=== PATIENT | male | born 1965 | race Caucasian/White ===

== ENCOUNTER 2016-11-27 13:57 | Emergency (ER) | payer BC ==
--- NOTE | 2016-11-27 14:14 | ED Physician Documentation ---
History of Present Illness - Stated complaint Stated Complaint: KIRAN/ELEVATED BP - Chief complaint Chief Complaint: General - History obtained from History obtained from: Patient - Additonal information Additional information: The patient is a 51-year-old male who presents with high blood pressure and pounding headache. He has been measuring his blood pressure in the 190s over the mid 90s for the past week. His headache has been intermittent, and occipital in location. He denies visual disturbance, chest pain or shortness of breath, nausea or vomiting, numbness or weakness. He reports similar symptoms occasionally in the past, but never lasting for this long. He has never been treated for hypertension. 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 Review of Systems Constitutional: denies: Fever, Fatigue Eyes: denies: Decreased vision Ears: denies: Tinnitus/ringing Nose: denies: Congestion Throat: denies: Sore throat Cardiac: denies: Chest pain / pressure, Palpitations Respiratory: denies: Dyspnea, Cough GI: denies: Abdominal Pain, Nausea, Vomiting : denies: Dysuria Skin: denies: Rash Musculoskeletal: denies: Neck pain, Back pain Neurologic: reports: Headache (Intermittent, occipital.). 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) - Past Surgical History Past Surgical History: Yes HEENT: Other (Squamous cell tumor resection of tongue, and right anterior lymph node dissection (August 2016).) - Present Medications Home Medications: Ambulatory Orders Medication Instructions Recorded Confirmed Irbesartan 75 mg PO DAILY #30 tablet 11/27/16 - Allergies Allergies/Adverse Reactions: Allergies Allergy/AdvReac Type Severity Reaction Status Date / Time No Known Drug Allergies Allergy Verified 11/27/16 14:07 - Social History Does the pt smoke?: No PD ED PE NORMAL - Vitals Vital signs reviewed: Yes (Hypertensive) - General General: Alert and oriented X 3, Well developed/nourished - HEENT HEENT: Atraumatic, PERRL, EOMI, Ears normal, Pharynx benign, Other (Fundi with sharp disc margins, without papilledema.) - Neck Neck: Supple, no meningeal sign, No adenopathy, No JVD - Cardiac Cardiac: RRR, No murmur - Respiratory Respiratory: No respiratory distress, Clear bilaterally - Abdomen Abdomen: Soft, Non tender - Back Back: No CVA TTP - Derm Derm: No rash - Extremities Extremities: No edema, No calf tenderness / cord - Neuro Neuro: Alert and oriented X 3, No motor deficit, No sensory deficit, Normal speech Results - Vitals Vitals: Oxygen O2 Source Room air - EKG (time done) 14:14 Rate: Rate (enter#) (66) Rhythm: NSR [place]: Normal Intervals: Normal MO QRS: Normal Ischemia: Normal ST segments Computer interpretation: Agree with computer - Labs Labs: Laboratory Tests 11/27/16 11/27/16 11/27/16 14:40 14:40 14:40 WBC 5.3 RBC 4.78 Hgb 14.2 Hct 40.0 L MCV 83.8 MCH 29.7 MCHC 35.4 RDW 13.1 Plt Count 150 MPV 8.1 Neut # 3.5 Lymph # 1.3 L [place] # 0.4 Eos # 0.1 Baso # 0.0 Absolute Nucleated RBC 0.00 Nucleated RBCs 0.0 Sodium 139 Potassium 3.7 Chloride 108 Carbon Dioxide 24 Anion Gap 7.0 BUN 19 Creatinine 0.7 Estimated GFR (MDRD) 119 Glucose 102 H Calcium 8.5 Total Bilirubin 0.5 AST 27 ALT 31 Alkaline Phosphatase 55 Total Protein 6.8 Albumin 4.1 Globulin 2.7 Albumin/Globulin Ratio 1.5 Lipase 30 Urine Color YELLOW Urine Clarity CLEAR Urine pH 6.5 Ur Specific [place] 1.020 Urine Protein NEGATIVE Urine Glucose (UA) NEGATIVE Urine Ketones NEGATIVE Urine Occult Blood TRACE-LYSE Urine Nitrite NEGATIVE Urine Bilirubin NEGATIVE Urine Urobilinogen 0.2 (NORMAL) Ur Leukocyte Esterase NEGATIVE Ur Microscopic Review NOT INDICATED Urine Culture Comments NOT INDICATED PD MEDICAL DECISION MAKING - ED course Complexity details: reviewed results, re-evaluated patient, considered differential, d/w patient, d/w family, d/w PMD ED course: The patient's presentation is significant for hypertension, of unknown etiology. His blood pressure on initial arrival was 197/98. He is otherwise asymptomatic except for intermittent occipital headache. He denies visual disturbance, chest pain, or nausea. His electrocardiogram reveals no ischemic abnormalities, and his CBC, chemistry panel, and urinalysis are normal. Treatment in the emergency department included administration of metoprolol 50 mg orally. I discussed his presentation with his primary physician, Dr. Mccray, who advises prescribing Irbesartan 75 mg daily. At the time of discharge the patient's blood pressure had improved to 170/87. He is being discharged with prescription for Irbesartan. I discussed with him the importance of follow-up with his primary physician, as well as potentially worrisome signs or symptoms that should prompt reevaluation in the emergency department. Departure - Departure Disposition: 01 Home, Self Care Clinical Impression: High blood pressure Qualifiers: Hypertension type: unspecified secondary hypertension Qualified Code(s): I15.9 - Secondary hypertension, unspecified Condition: Stable Instructions: ED Hypertension New Begin Tx Follow-Up: Faheem Mccray MD [Primary Care Provider] - Prescriptions: Irbesartan 75 mg PO DAILY #30 tablet Comments: Take the blood pressure medication daily as prescribed. You can use Tylenol or ibuprofen as needed for headache. Follow up with your primary physician as scheduled. Return to the emergency department if you develop increasing headache, visual disturbance, chest pain or shortness of breath, or otherwise worsening symptoms. Discharge Date/Time: 11/27/16 15:25
[2016-11-27] MEDS ORDERED: METOPROLOL TARTRATE 50 MG TABLET PO STA (14:18)
[2016-11-27] MEDS ORDERED: METOPROLOL TARTRATE 50 MG TABLET ONE (14:37)
[2016-11-27 14:48] LABS: BASOPHILS % (AUTO) 0.4 %; EOSINOPHILS # (AUTO) 0.1 10^3/uL (0.0-0.7); EOSINOPHILS % (AUTO) 1.9 %; HGB - HEMOGLOBIN 14.2 g/dL (14.0-18.0); LYMPHOCYTES # (AUTO) 1.3 10^3/uL (1.5-3.5); LYMPHOCYTES % (AUTO) 24.1 %; MEAN CORPUSCULAR HEMOGLOBIN 29.7 pg (27.0-31.0); MEAN CORPUSCULAR HGB CONC 35.4 g/dL (32.0-36.0); MEAN CORPUSCULAR VOLUME 83.8 fL (80.0-94.0); MEAN PLATELET VOLUME 8.1 fL (7.4-11.4); MONOCYTES # (AUTO) 0.4 10^3/uL (0.0-1.0); MONOCYTES % (AUTO) 7.8 %; NEUTROPHILS # (AUTO) 3.5 10^3/uL (1.5-6.6); NEUTROPHILS % (AUTO) 65.8 %; RED BLOOD COUNT 4.78 10^6/uL (4.70-6.10); RED CELL DISTRIBUTION WIDTH 13.1 % (12.0-15.0); UNCORRECTED WHITE BLOOD COUNT 5.3 x10^3/uL; WHITE BLOOD COUNT 5.3 x10^3/uL (4.8-10.8)
[2016-11-27 14:53] LABS: BILIRUBIN,URINE NEGATIVE (NEGATIVE); PH,URINE 6.5 PH (5.0-7.5)
[2016-11-27 14:55] LABS: UA CHARGE (STRIP ONLY) YES; UR CULTURE IF IND NOT INDICATED
[2016-11-27 15:05] LABS: ALBUMIN/GLOBULIN RATIO 1.5 (1.0-2.2); BILIRUBIN,TOTAL 0.5 mg/dL (0.2-1.0); CALCIUM 8.5 mg/dL (8.5-10.3); CREATININE 0.7 mg/dL (0.6-1.2); POTASSIUM 3.7 mmol/L (3.5-5.0); TOTAL PROTEIN 6.8 g/dL (6.7-8.2)
[2016-11-27 15:17] VITALS: BP 170/87
== END 2016-11-27 15:25 | disposition home or self-care (01) ==
LOC: ED 13:57
DX: I10 Essential (primary) hypertension (principal); R51 Headache; Z85.810 Personal history of malignant neoplasm of tongue
CPT/HCPCS: 36415; 80053; 81003; 83690; 85025; 93005; 93010; 99283; 99284; A9270; 81001; 87086

== ENCOUNTER 2018-01-10 13:16 | Outpatient (CLI) | payer BC | END 2018-01-10 23:59 | disposition short-term general hospital (02) | LOC: EMS 13:16 | PROVIDERS: ATTEND Surgery | DX: R09.89 Other specified symptoms and signs involving the circulatory and respiratory systems (principal) | CPT/HCPCS: A0170; A0425; A0429 ==

== ENCOUNTER 2018-11-25 10:33 | Outpatient (CLI) | payer BC ==
[2018-11-25] MEDS ORDERED: IOVERSOL 320 100 ML VIAL IVP ONE ×2 (11:06→14:45)
[2018-11-25] MEDS ORDERED: IOVERSOL 320 50 ML VIAL ONE (11:06)
[2018-11-25] MEDS ORDERED: IOVERSOL 320 50 ML VIAL PO ONE (14:45)
--- NOTE | 2018-11-25 15:29 | CT Report ---
Reason: METESTETIC HEAD NECK CANCER Procedure Date: 11/25/2018 Accession Number: [id number] / [id number] Procedure: CT - Abdomen/Pelvis W CPT Code: FULL RESULT: EXAM: CT ABDOMEN AND PELVIS EXAM DATE: 11/25/2018 12:32 PM. CLINICAL HISTORY: Metastatic head and neck cancer for follow-up COMPARISONS: [facility] 08/17/2018 TECHNIQUE: Routine helical CT imaging was performed through the abdomen and pelvis. IV contrast: OPTI 320 100mL. Enteric contrast: Yes. Reconstructions: Coronal and sagittal. In accordance with CT protocol optimization, one or more of the following dose reduction techniques were utilized for this exam: automated exposure control, adjustment of mA and/or KV based on patient size, or use of iterative reconstructive technique. FINDINGS: Lung Bases: Unremarkable. Liver: New 7 mm posterior right lobe low attenuation lesion 10/16. Otherwise stable unremarkable liver. Gallbladder/Bile Ducts: Unremarkable. Spleen: Normal. Pancreas: Normal. Adrenal Glands: Enlarging right adrenal mass currently 3.4 x 2.4 cm, previously 1.8 x 1.2 cm. Negative left adrenal gland Kidneys: Stable bilateral cysts, the largest on the left 5.3 x 5.4 cm . Peritoneal Cavity/Bowel: No free fluid, free air or adenopathy. No masses or acute inflammatory process. The appendix is well seen and normal. Pelvic Organs: Normal. The bladder and pelvic organs are within normal limits. Vasculature: No aneurysms or other significant abnormality. Bones: No significant abnormality. Other: None. IMPRESSION: 1. Enlarging right adrenal mass currently 3.4 x 2.4 cm, previously 1.8 x 1.2 cm, consistent with metastatic disease. 2. New 7 mm low-attenuation lesion right lobe of the liver worrisome for metastatic disease. 3. Stable renal cysts. 4. No other significant findings or interval change. RADIA
--- NOTE | 2018-11-25 16:05 | CT Report ---
Reason: METESTETIC HEAD NECK CANCER Procedure Date: 11/25/2018 Accession Number: [id number] / [id number] Procedure: CT - CHEST W CPT Code: FULL RESULT: EXAM: CT CHEST EXAM DATE: 11/25/2018 12:32 PM. CLINICAL HISTORY: Metastatic HEAD AND NECK CANCER. For follow-up COMPARISONS: 08/17/[address] TECHNIQUE: Routine helical CT imaging was performed through the chest. IV contrast: 100 cc Optiray 320. Reconstructions: Coronal and sagittal. In accordance with CT protocol optimization, one or more of the following dose reduction techniques were utilized for this exam: automated exposure control, adjustment of mA and/or KV based on patient size, or use of iterative reconstructive technique. FINDINGS: Lungs/Pleura: The 2 previously seen irregular cystic nodules at the right lung apex have coalesced into one large mass with relatively stable cystic components but enlarging solid component. There is now ill-defined destruction with a pathologic fracture of the right first rib 09/01. A broad cord of tissue extends from this apical mass to a right hilar mass/adenopathy currently measuring 3 x 3.5 cm 09/15 and 26 previously approximately 3.3 x 2.7 cm. The left lower lobe mass is similar in size but now exhibits central cystic components not previously present. There is no pleural fluid or pneumothorax. Mediastinum: Right hilar lymph node as above. In addition enlarging anterior mediastinal lymph node 09/12 currently 5 mm. Bones: Multiple Schmorl's nodes. No thoracic spine bone destruction. Other: None. IMPRESSION: 1. Enlarging right apical cystic and solid soft tissue mass with associated new bone destruction and pathologic fracture of the right first rib. 2. Enlarging right hilar mass/adenopathy with a thick cord of tissue extending from the hilum to the apical mass. 3. Stable size left lower lobe mass now with partial cystic replacement of the solid component. 4. Enlarging subcentimeter anterior mediastinal lymph node. 5. Otherwise stable. See neck and abdomen/pelvic CT reports. RADIA
--- NOTE | 2018-11-25 16:49 | CT Report ---
Reason: METESTETIC HEAD NECK CANCER Procedure Date: 11/25/2018 Accession Number: [id number] / [id number] Procedure: CT - SOFT TISSUE NECK W CPT Code: FULL RESULT: EXAM: CT SOFT TISSUE NECK WITH CONTRAST. EXAM DATE: 11/25/2018 12:32 PM. HISTORY: Metastatic head and neck cancer for follow-up. COMPARISONS: 08/17/2018. TECHNIQUE: Routine soft tissue neck CT protocol. Reconstructions: Coronal and sagittal. IV contrast: OPTI 320 100mL. In accordance with CT protocol optimization, one or more of the following dose reduction techniques were utilized for this exam: automated exposure control, adjustment of mA and/or KV based on patient size, or use of iterative reconstructive technique. FINDINGS: Included Intracranial Contents: Unremarkable. Orbits: Symmetric and unremarkable. Sinuses: Mild membrane thickening right maxillary sinus. Clear mastoid air cells and middle ear cavities, left maxillary sinus, and bilateral ethmoid sinuses.. Oral cavity: Postsurgical changes consistent with base of tongue cancer. Question developing left floor of mouth collection with faint peripheral enhancement measuring 2 x 1.9 cm and versus evolving postsurgical change. Larynx: Larynx and supraglottic airway are patent without mass lesion. Vocal cords are symmetric. The imaged trachea is unremarkable. Parotid and Submandibular Glands: The right submandibular gland is either atrophic or has been resected. The left submandibular gland and left parotid gland appear normal the right parotid gland is slightly small in size. Lymph Nodes: No enlarged lymph nodes are identified. Soft tissues: Status post right lymph node dissection with multiple surgical clips. The right sternocleidomastoid muscle remains, but adjacent fat planes are distorted and there is diffuse soft tissue thickening consistent with scarring and radiation. The scalene muscles appear asymmetric and there is loss of the normal fat planes on the right for example . Asymmetric increased soft tissue anterior to the right first rib is similar to previous . Increasing soft tissue density at the right apex and between the first and second ribs. Vascular Structures: The right internal jugular vein has either been resected or is occluded. Right internal carotid artery remains. Thyroid Gland: Unremarkable Lung apex: Enlarging cystic and solid mass right apex. Bones: Right first rib destruction with pathologic fracture. Other: Right Port-A-Cath in place4 IMPRESSION: 1. Postsurgical and post radiation changes right neck similar to 08/17/2018 including asymmetry of the scalene muscles. Presumed resection of the right internal jugular vein and submandibular gland versus thrombosis/atrophy. 2. Question developing left floor of mouth collection versus evolving postsurgical change. 3. Enlarging cystic and solid right apical mass now with right first rib destruction and a pathologic fracture. 4. Right Port-A-Cath. 5. No definite pathologic adenopathy. RADIA
== END 2018-11-25 10:34 | disposition home or self-care (01) ==
LOC: DI 10:33
PROVIDERS: ATTEND Internal Medicine
DX: C02.1 Malignant neoplasm of border of tongue (principal); C78.01 Secondary malignant neoplasm of right lung; M84.48XA Pathological fracture, other site, initial encounter for fracture; Z95.828 Presence of other vascular implants and grafts; E27.9 Disorder of adrenal gland, unspecified; K76.9 Liver disease, unspecified; Q61.02 Congenital multiple renal cysts
CPT/HCPCS: 70491; 71260; 74177; Q9967

== ENCOUNTER 2019-02-16 01:26 | Outpatient (CLI) | payer BC | END 2019-02-16 01:27 | disposition critical access hospital (66) | LOC: EMS 01:26 | PROVIDERS: ATTEND Surgery | DX: K92.0 Hematemesis (principal) | CPT/HCPCS: A0425; A0427 ==

== ENCOUNTER 2019-02-16 01:57 | Emergency (ER) | payer BC ==
[2019-02-16 02:04] VITALS: BP 149/81
[2019-02-16] MEDS ORDERED: TRANEXAMIC ACID 1,000 MG in SODIUM CHLORIDE 0.9% 100ML 100 ML IV STA (02:13)
[2019-02-16] MEDS ORDERED: ONDANSETRON ODT 4 MG Prepack 2 TL PRN (02:13)
--- NOTE | 2019-02-16 02:22 | ED Physician Documentation ---
History of Present Illness - Stated complaint Stated Complaint: VOMITING BLOOD, CA - Chief complaint Chief Complaint: General - History obtained from History obtained from: Patient, Family, EMS - History of Present Illness Timing: Today Pain level max: 8 Pain level now: 2 Improved by: nothing Worsened by: nothing - Additonal information Additional information: 53-year-old male with a history of squamous cell carcinoma of the throat presents to the emergency department with increasing pain and vomiting. States he started bleeding and then had the vomiting. No vomiting blood. Received fentanyl and Zofran with EMS. Symptoms are now controlled. He is on hospice care. Does not feel that he has bleeding currently. 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) - Past Surgical History Past Surgical History: Yes General: Other HEENT: Other (Squamous cell tumor resection of tongue, and right anterior lymph node dissection (August 2016).) - Present Medications Home Medications: Ambulatory Orders Medication Instructions Recorded Confirmed Oxycodone HCl 10 mg ORAL Q4H PRN 11/10/18 02/01/19 Apixaban [Eliquis] 5 mg PO BID 12/01/18 02/01/19 Cholecalciferol (Vitamin D3) 3,000 unit PO DAILY 12/01/18 02/01/19 [Vitamin D3] Cyanocobalamin (Vitamin B-12) 1,000 mcg PO DAILY 12/01/18 02/01/19 [Vitamin B-12] Diphenoxylate HCl/Atropine 1 tab PO Q6H PRN 12/01/18 02/01/19 [Diphenoxylate-Atrop 2.5-0.025] Levothyroxine [Synthroid] 75 mg PO DAILY 12/01/18 02/01/19 Loratadine [Claritin] 10 mg PO DAILY 12/01/18 02/01/19 Magnesium Oxide [Mag-Oxide] 400 mg PO BID 12/01/18 02/01/19 Metoclopramide [Reglan] 10 mg PO Q6H PRN 12/01/18 02/01/19 Morphine Sulfate [Ms Contin] 15 mg PO BID 12/01/18 02/01/19 Omeprazole 20 mg PO DAILY 12/01/18 02/01/19 Ondansetron HCl [Zofran] 8 mg PO Q8H PRN 12/01/18 02/01/19 Prochlorperazine [Compazine] 10 mg PO Q6H PRN 12/01/18 02/01/19 Rosuvastatin Calcium 5 mg PO DAILY 12/01/18 02/01/19 dexAMETHasone [Decadron] 8 mg PO BID 12/03/18 02/01/19 Fluconazole [Diflucan] 200 mg PO DAILY 01/11/19 02/01/19 Oxycodone HCl 5 mg PO Q6H PRN 01/11/19 02/01/19 - Allergies Allergies/Adverse Reactions: Allergies Allergy/AdvReac Type Severity Reaction Status Date / Time amoxicillin [From Augmentin] Allergy Unknown Verified 02/01/19 13:09 clavulanic acid Allergy Unknown Verified 02/01/19 13:09 [From Augmentin] - Social History Does the pt smoke?: No Smoking Status: Never smoker Does the pt have substance abuse?: No - Immunizations Immunizations are current?: Yes PD ED PE NORMAL - Vitals Vital signs reviewed: Yes - General General: Alert and oriented X 3, No acute distress, Well developed/nourished - HEENT HEENT: PERRL, Moist mucous membranes, Other (no visible bleeding in the oropharynx) - Neck Neck: Supple, no meningeal sign - Cardiac Cardiac: RRR, Strong equal pulses - Respiratory Respiratory: No respiratory distress, Clear bilaterally - Abdomen Abdomen: Soft, Non tender, Non distended - Derm Derm: Warm and dry - Neuro Neuro: Alert and oriented X 3 - Psych Psych: Normal mood, Normal affect Results - Vitals Vitals: Vital Signs - 24 hr 02/16/19 01:52 Temperature 36 C L Heart Rate 83 Respiratory 10 L Rate Blood Pressure 149/81 H O2 Saturation 98 Oxygen O2 Source Room air PD MEDICAL DECISION MAKING - ED course Complexity details: reviewed results, re-evaluated patient, considered differential, d/w patient, d/w family, d/w PMD ([facility]) ED course: 53-year-old male on hospice. Pain controlled nausea controlled. Tolerating p.o. well. Given tranexamic acid for any bleeding. We will follow-up with hospice for further care. Discussed the case with Dr. Ornelas, hospice physician while the patient was in the emergency department. Patient and are comfortable with plan. This document was made in part using voice recognition software. While efforts are made to proofread this document, sound alike and grammatical errors may occur. Departure - Departure Disposition: 01 Home, Self Care Clinical Impression: Pharyngeal hemorrhage Condition: Stable Instructions: ED Bleed UGI Stable Follow-Up: Faheem Mccray MD [Primary Care Provider] - Emigdio Ornelas MD [Provider Admit Priv/Credential] - Tomorrow Comments: Return if you worsen. Follow-up with your doctor for further evaluation and care. Discharge Date/Time: 02/16/19 03:00
[2019-02-16] MEDS ORDERED: HYDROmorphone 1 MG/ML CARPUJECT IVP STA (02:41)
== END 2019-02-16 03:00 | disposition home or self-care (01) ==
LOC: EDUNIT# → ED 01:57
DX: R04.1 Hemorrhage from throat (principal); R07.0 Pain in throat; Z85.810 Personal history of malignant neoplasm of tongue; Z85.819 Personal history of malignant neoplasm of unspecified site of lip, oral cavity, and pharynx
CPT/HCPCS: 96365; 96375; 99283; 99284; J1170

== ENCOUNTER 2019-02-26 15:28 | Outpatient (CLI) | payer BC | END 2019-02-26 15:29 | disposition E | LOC: EMS 15:28 | PROVIDERS: ATTEND Surgery ==